=== PATIENT | male | born 1985 | race African-American/Black ===

== ENCOUNTER 2016-07-03 20:40 | Emergency (ER) | payer SELFPAY ==
[~2016-07-03] VITALS: Ht 188 cm; Wt 71.1 kg
[~2016-07-03 20:40] MED LIST: IBUP200T48 PO
[2016-07-03 20:44] VITALS: BP 124/69
== END 2016-07-03 22:01 | disposition home or self-care (01) ==
LOC: ED 21:35
DX: S92.101A Unspecified fracture of right talus, initial encounter for closed fracture (principal); S93.491A Sprain of other ligament of right ankle, initial encounter; X50.1XXA Overexertion from prolonged static or awkward postures, initial encounter; Y93.67 Activity, basketball; Y92.328 Other athletic field as the place of occurrence of the external cause; Y99.9 Unspecified external cause status
CPT/HCPCS: 29515; 99284